=== PATIENT | female | born 1995 | race Two or more races ===

== ENCOUNTER 2016-07-23 06:00 | Emergency (ER) | payer SELFPAY ==
[~2016-07-23] VITALS: Ht 152.4 cm; Wt 105.9 kg
[2016-07-23 06:31] LABS: HEMATOCRIT 40.4 % (36.0-46.0); MCH 28.5 PG (29.0-34.0); MCHC 34.2 G/DL (30.0-36.0); MCV 83.3 FL (83-99); MEAN PLAT.VOLUME 10.7 uM^3 (9.5-12.4); PLATELET COUNT 284 K/uL (156-360); RBC DIS.WIDTH-CV 13.8 % (11.8-14.6); RBC DIS.WIDTH-SD 41.2 % (39-53); RED BLOOD COUNT 4.85 M/uL (3.80-5.20); WHITE BLOOD COUNT 10.8 K/uL (4.1-10.2)
[2016-07-23 06:32] LABS: ADD MIUA? YES; BILIRUBIN SMALL; BLOOD NEGATIVE; COLOR YELLOW ((YELLOW)); GLUCOSE (STRIP) NEGATIVE; KETONES 40; LEUKOCYTES SMALL; NITRITE NEGATIVE; PROTEIN (STRIP) NEGATIVE; SPECIFIC GRAVITY 1.026 (1.000-1.030)
[2016-07-23 06:48] LABS: CHLORIDE 103 mEq/L (99-109); SODIUM 137 mEq/L (136-147)
[2016-07-23 06:50] LABS: GLUCOSE 117 mg/dL (70-99)
[2016-07-23 06:51] LABS: ANION GAP 14 MEQ/L (2-14)
[2016-07-23 06:53] LABS: ALKALINE PHOSPHATASE 91 IU/L (3-129)
[2016-07-23 06:55] LABS: UREA NITROGEN (BUN) 9 mg/dL (9-23)
[2016-07-23 07:02] LABS: BACTERIA 2+; CASTS NONE SEEN /LPF; CRYSTALS NONE SEEN; EPITHELIAL CELLS 3+; MUCUS NONE SEEN; RED BLOOD CELLS 0-5 /HPF (0-5); UCUL ADDED? YES
[2016-07-23 07:02] LABS: GFR ESTIMATE (CALCULATED) > 59 mL/min/
[2016-07-23 07:04] LABS: QUANTITATIVE HCG < 4.0 MIU/ML
[2016-07-23 09:37] LABS: INTERNAL CONTROL VALID? YES; MONOSPOT (MONONUCLEOSIS SEROL) NEGATIVE
[2016-07-23] MEDS ORDERED: NAPROXEN500 MG PO (09:40)
[2016-07-23] MEDS ORDERED: ZOFRAN ODT4 MG PO (09:40)
[2016-07-23 10:21] VITALS: BP 123/93
== END 2016-07-23 10:21 | disposition home or self-care (01) ==
LOC: EME 06:00
PROVIDERS: Physician Assistant
DX: K52.9 Noninfective gastroenteritis and colitis, unspecified (principal); J02.9 Acute pharyngitis, unspecified; Z72.0 Tobacco use
CPT/HCPCS: 80053; 81003; 84702; 85027; 86308; 87086; 99281; 99284; J0561; J1100

== ENCOUNTER 2016-09-06 12:25 | Inpatient (IN) | payer OTHER ==
[~2016-09-06] VITALS: Ht 152.4 cm; Wt 104.2 kg
[~2016-09-06 12:25] MED LIST: NAPROXEN500 MG PO; ZOFRAN ODT4 MG PO
[2016-09-06 13:18] LABS: HEMATOCRIT 38.9 % (36.0-46.0); MCH 27.4 PG (29.0-34.0); MCHC 32.6 G/DL (30.0-36.0); MEAN PLAT.VOLUME 10.1 uM^3 (9.5-12.4); PLATELET COUNT 299 K/uL (156-360); RBC DIS.WIDTH-CV 14.1 % (11.8-14.6); RBC DIS.WIDTH-SD 43.1 % (39-53); RED BLOOD COUNT 4.63 M/uL (3.80-5.20); WHITE BLOOD COUNT 7.7 K/uL (4.1-10.2)
[2016-09-06 13:25] LABS: CHLORIDE 106 mEq/L (99-109); POTASSIUM 4.2 mEq/L (3.7-5.4); SODIUM 136 mEq/L (136-147)
[2016-09-06 13:27] LABS: GLUCOSE 90 mg/dL (70-99)
[2016-09-06 13:29] LABS: ANION GAP 10 MEQ/L (2-14)
[2016-09-06 13:30] LABS: SERUM ETHYL ALCOHOL < 10 mg/dL
[2016-09-06 13:31] LABS: GFR ESTIMATE (CALCULATED) > 59 mL/min/
[2016-09-06 13:32] LABS: UREA NITROGEN (BUN) 7 mg/dL (9-23)
[2016-09-06 13:59] LABS: QUANTITATIVE HCG 55602.4 MIU/ML
[2016-09-06] MEDS ORDERED: NAPROSYN500 MG PO (15:45)
[2016-09-06 16:09] LABS: ADD MEDTOX COMMENT Y; AMPHETAMINE NEGATIVE (500 ng/mL); BARBITURATES NEGATIVE (200 ng/mL); BENZODIAZEPINES NEGATIVE (150 ng/mL); COCAINE NEGATIVE (150 ng/mL); INTERNAL CONTROLS VALID? YES; METHADONE NEGATIVE (200 ng/mL); METHAMPHETAMINE NEGATIVE (500 ng/mL); OPIATES (MORPHINE) NEGATIVE (100 ng/mL); OXYCODONE NEGATIVE (100 ng/mL); PHENCYCLIDINE NEGATIVE (25 ng/mL); PROPOXYPHENE NEGATIVE (300 ng/mL); THC CANNABINOIDS PRESUMPTIVE POSITIVE (50 ng/mL); TRICYCLIC ANTIDEPRESSANTS NEGATIVE (300 ng/mL)
[2016-09-06 18:39] VITALS: BP 105/68
[2016-09-06 18:46] VITALS: BP 105/68
[2016-09-07 07:33] VITALS: BP 98/64
[2016-09-07 16:12] VITALS: BP 101/55
[2016-09-08 07:48] VITALS: BP 98/51
[2016-09-08 16:12] VITALS: BP 98/56
[2016-09-08 20:45] VITALS: BP 104/58
[2016-09-09 08:02] VITALS: BP 97/64
[2016-09-09 15:01] VITALS: BP 96/59
[2016-09-10] MEDS ORDERED: PRENATAL VITAM1 EAC6 PO (09:56)
[2016-09-10 10:13] VITALS: BP 113/64
== END 2016-09-10 13:09 | disposition home or self-care (01) | DRG 881 ==
LOC: EME 12:25 → EDOF 15:20 → 1WEST 15:20
DX: F43.21 Adjustment disorder with depressed mood (principal); F60.3 Borderline personality disorder; R45.851 Suicidal ideations; Z33.1 Pregnant state, incidental
CPT/HCPCS: 80048; 84702; 84999; 85027; 90839; 97150 GO; 97165 GO; 99281; 99285; G0480; Q0169

== ENCOUNTER 2018-01-11 17:50 | Emergency (ER) | payer BC ==
[~2018-01-11] VITALS: Ht 152.4 cm; Wt 115.6 kg
[~2018-01-11 17:50] MED LIST changes: +NAPROSYN500 MG PO; +PRENATAL VITAM1 EAC6 PO
[2018-01-11 19:43] LABS: APPEARANCE SL.HAZY ((CLEAR)); BILIRUBIN NEGATIVE; BLOOD NEGATIVE; COLOR YELLOW ((YELLOW)); GLUCOSE (STRIP) NEGATIVE; KETONES NEGATIVE; LEUKOCYTES SMALL; NITRITE NEGATIVE; PROTEIN (STRIP) 30; SPECIFIC GRAVITY 1.024 (1.000-1.030); UROBILINOGEN 0.2 MG/DL (0.2-1.0)
[2018-01-11 19:50] VITALS: BP 107/56
[2018-01-11 19:54] LABS: BACTERIA NONE SEEN /HPF; EPITHELIAL CELLS 1+ /HPF; HYALINE CASTS 0-5 /LPF; MUCUS TRACE /LPF; RED BLOOD CELLS 0-5 /HPF (0-5); UCUL ADDED? NO; WHITE BLOOD CELLS 0-5 /HPF (0-5)
== END 2018-01-11 20:06 | disposition home or self-care (01) ==
LOC: EME 17:50
PROVIDERS: Emergency Medicine
DX: T67.5XXA Heat exhaustion, unspecified, initial encounter (principal); X30.XXXA Exposure to excessive natural heat, initial encounter; Z32.01 Encounter for pregnancy test, result positive; R42 Dizziness and giddiness; H53.8 Other visual disturbances; R11.0 Nausea
CPT/HCPCS: 81003; 82948; 84702; 99281; 99284; J7040

== ENCOUNTER 2018-02-11 23:09 | Emergency (ER) | payer BC ==
[~2018-02-11] VITALS: Ht 152.4 cm; Wt 115.4 kg
[2018-02-11 23:28] LABS: HEMATOCRIT 35.4 % (36.0-46.0); HEMOGLOBIN 11.8 G/DL (11.9-15.5); MCH 27.1 PG (29.0-34.0); MCHC 33.3 G/DL (30.0-36.0); MCV 81.4 FL (83-99); PLATELET COUNT 280 K/uL (156-360); RBC DIS.WIDTH-CV 15.2 % (11.8-14.6); RBC DIS.WIDTH-SD 45.7 % (39-53); RED BLOOD COUNT 4.35 M/uL (3.80-5.20); WHITE BLOOD COUNT 10.7 K/uL (4.1-10.2)
[2018-02-11 23:38] LABS: CHLORIDE 105 mEq/L (99-109); SODIUM 138 mEq/L (136-147)
[2018-02-11 23:41] LABS: GLUCOSE 103 mg/dL (70-99); TOTAL PROTEIN 8.1 g/dL (6.4-8.3)
[2018-02-11 23:43] LABS: TOTAL BILIRUBIN 0.5 mg/dL (0.0-1.0)
[2018-02-11 23:44] LABS: ALKALINE PHOSPHATASE 82 IU/L (3-129); CREATININE 0.7 mg/dL (0.6-1.3); GFR ESTIMATE (CALCULATED) > 59 mL/min/
[2018-02-11 23:45] LABS: UREA NITROGEN (BUN) 14 mg/dL (9-23)
[2018-02-11 23:46] LABS: AST (GOT) 17 IU/L (2-34)
[2018-02-11 23:47] LABS: ALT (GPT) 19 IU/L (3-49)
[2018-02-12 00:04] LABS: LIPASE 34 U/L (1.0-51.0)
[2018-02-12 00:10] LABS: QUANTITATIVE HCG 53421.4 MIU/ML
[2018-02-12 01:16] LABS: APPEARANCE SL.HAZY ((CLEAR)); BILIRUBIN NEGATIVE; BLOOD NEGATIVE; COLOR YELLOW ((YELLOW)); GLUCOSE (STRIP) NEGATIVE; KETONES NEGATIVE; LEUKOCYTES TRACE; NITRITE NEGATIVE; PROTEIN (STRIP) NEGATIVE; SPECIFIC GRAVITY 1.025 (1.000-1.030); UROBILINOGEN 0.2 MG/DL (0.2-1.0)
[2018-02-12 01:25] LABS: BACTERIA NONE SEEN /HPF; EPITHELIAL CELLS 2+ /HPF; MUCUS TRACE /LPF; RED BLOOD CELLS 0-5 /HPF (0-5); UCUL ADDED? YES
[2018-02-12 03:21] VITALS: BP 118/60
[2018-02-13] MEDS ORDERED: KEFLEX500 MG PO (06:41)
[2018-02-13] MEDS ORDERED: PEPCID20 MG PO (06:41)
== END 2018-02-12 03:21 | disposition home or self-care (01) ==
LOC: EME 23:09
DX: O26.891 Other specified pregnancy related conditions, first trimester (principal); R10.13 Epigastric pain; Z3A.08 8 weeks gestation of pregnancy; O99.341 Other mental disorders complicating pregnancy, first trimester; F32.9 Major depressive disorder, single episode, unspecified
CPT/HCPCS: 76705; 76801; 80053; 81003; 83690; 84702; 85027; 87086; 93005; 99281; 99285; J3010; J7030

== ENCOUNTER 2018-02-13 03:43 | Emergency (ER) | payer BC ==
[~2018-02-13] VITALS: Ht 152.4 cm; Wt 114.4 kg
[2018-02-13 05:24] LABS: HEMATOCRIT 33.9 % (36.0-46.0); HEMOGLOBIN 11.5 G/DL (11.9-15.5); MCH 27.6 PG (29.0-34.0); MCHC 33.9 G/DL (30.0-36.0); MCV 81.3 FL (83-99); PLATELET COUNT 244 K/uL (156-360); RBC DIS.WIDTH-CV 15.2 % (11.8-14.6); RED BLOOD COUNT 4.17 M/uL (3.80-5.20); WHITE BLOOD COUNT 9.6 K/uL (4.1-10.2)
[2018-02-13 05:34] LABS: ALBUMIN 3.7 g/dL (3.2-4.8)
[2018-02-13 05:35] LABS: CHLORIDE 104 mEq/L (99-109); SODIUM 136 mEq/L (136-147)
[2018-02-13 05:37] LABS: GLUCOSE 110 mg/dL (70-99); TOTAL PROTEIN 7.7 g/dL (6.4-8.3)
[2018-02-13 05:41] LABS: CREATININE 0.7 mg/dL (0.6-1.3); GFR ESTIMATE (CALCULATED) > 59 mL/min/
[2018-02-13 05:42] LABS: ALKALINE PHOSPHATASE 118 IU/L (3-129); TOTAL BILIRUBIN 0.9 mg/dL (0.0-1.0); UREA NITROGEN (BUN) 13 mg/dL (9-23)
[2018-02-13 05:43] LABS: AST (GOT) 127 IU/L (2-34)
[2018-02-13 05:44] LABS: ALT (GPT) 74 IU/L (3-49); LIPASE 35 U/L (1.0-51.0)
[2018-02-13 06:12] LABS: QUANTITATIVE HCG 57051.3 MIU/ML
[2018-02-13] MEDS ORDERED: KEFLEX500 MG PO (06:41)
[2018-02-13] MEDS ORDERED: PEPCID20 MG PO (06:41)
[2018-02-13 07:25] VITALS: BP 114/64
== END 2018-02-13 07:32 | disposition home or self-care (01) ==
LOC: EME 03:43
PROVIDERS: Emergency Medicine
DX: O23.41 Unspecified infection of urinary tract in pregnancy, first trimester (principal); R79.89 Other specified abnormal findings of blood chemistry; R10.13 Epigastric pain; K76.0 Fatty (change of) liver, not elsewhere classified; Z3A.08 8 weeks gestation of pregnancy
CPT/HCPCS: 80053; 81003; 83690; 84702; 85027; 99281; 99285; J2405; J7030; S0028